=== PATIENT | male | born 1985 | race Caucasian/White ===

== ENCOUNTER 2017-01-12 02:13 | Emergency (ER) | payer OTHER ==
[~2017-01-12] VITALS: Ht 182.9 cm; Wt 174.6 kg
[2017-01-12 02:53] LABS: ABSOLUTE NEUTROPHILS 5.3 thou/uL (1.4-8.2); BASOPHILS 1.2 % (0.0-2.0); HEMATOCRIT 43.5 % (42.0-52.0); HEMOGLOBIN 14.8 gm/dL (14.0-18.0); LYMPHOCYTES 24.3 % (24.0-44.0); MCH 28.3 pg (26.0-34.0); MCHC 34.1 g/dL (28.0-37.0); MCV 83.1 fL (80.0-100.0); MONOCYTES 11.5 % (1.0-8.0); PLATELET COUNT 317 thou/uL (150-400); RBC 5.23 mil/uL (4.50-6.00); WBC 8.6 thou/uL (4.0-11.0)
[2017-01-12 02:59] LABS: MANUAL DIFF NO
[2017-01-12 03:00] LABS: CALCIUM 8.8 mg/dL (8.5-10.1); POTASSIUM 3.6 mmol/L (3.5-5.1)
[2017-01-12 03:04] LABS: ALBUMIN 3.9 g/dL (3.4-5.0); TOTAL BILIRUBIN 0.5 mg/dL (<0.1-1.0); TOTAL PROTEIN 7.5 g/dL (6.4-8.2)
[2017-01-12] MEDS ORDERED: HYDROCODONE-APA1 TA1 PO (05:14)
[2017-01-12] MEDS ORDERED: KEFLEX500 M1 PO (05:14)
[2017-01-12] MEDS ORDERED: BACTRIM DS TAB1 EACH PO (05:14)
[2017-01-12 05:28] VITALS: BP 121/70
== END 2017-01-12 05:29 | disposition home or self-care (01) ==
LOC: ER 02:13
PROVIDERS: Emergency Medicine
DX: S31.154A Open bite of abdominal wall, left lower quadrant without penetration into peritoneal cavity, initial encounter (principal); L03.311 Cellulitis of abdominal wall; W57.XXXA Bitten or stung by nonvenomous insect and other nonvenomous arthropods, initial encounter; Y93.89 Activity, other specified; Y92.89 Other specified places as the place of occurrence of the external cause; Y99.8 Other external cause status; Z88.1 Allergy status to other antibiotic agents